=== PATIENT | female | born 1940 | race Caucasian/White ===

== ENCOUNTER 2016-12-02 13:03 | Emergency (ER) | payer OTHER ==
[~2016-12-02] VITALS: Ht 152.4 cm; Wt 85.3 kg
[~2016-12-02 13:03] MED LIST: ALPHAGAN-P 0.2%5 ML INTRAOC; ASPI-COR81 M1; ASPIRIN FOR CHI81 MG PO; CALCIUM 500500 M2 PO; CLINDAMYCIN300 MG PO; DARVOCET N 1001 TAB PO; DAYPRO600 M1 PO; DO NOT PROFILE T1 EA; LISINOPRIL20 MG PO; NORFLEX100 MG PO; PREDNISOLO15 MG/5 M1 PO; SKELAXIN800 MG PO; TIMOPTIC 0.5% 55 ML OS; VICO10300 PO; XALATAN 0.005%2.5 ML INTRAOC; [UNRECOGNIZED DRUG - OTHER] PO
[2016-12-02 14:29] LABS: BASO % 0.3 % (0.0-1.0); EOS # 0.1 10*3/uL (0.0-0.4); EOS % 1.4 % (1.0-4.0); HEMATOCRIT 39.3 % (37.0-47.0); HEMOGLOBIN 13.3 g/dl (12.0-16.0); LYMPH # 0.8 10*3/uL (1.3-4.4); LYMPH % 9.5 % (27.0-41.0); MEAN CELL VOLUME 84.5 fl (81.0-99.0); MEAN CORPUSCULAR HGB 28.6 pg (27.0-31.0); MEAN CORPUSCULAR HGB CONC 33.8 g/dl (33.0-37.0); MEAN PLATELET VOLUME 9.9 fl (9.6-12.3); MONO # 0.5 10*3/uL (0.1-1.0); MONO % 6.3 % (3.0-9.0); NEUT # 6.5 10*3/uL (2.3-7.9); NEUT % 82.1 % (47.0-73.0); PLATELET COUNT AUTOMATED 183 10*3/uL (130-400); RED BLOOD COUNT 4.65 10*6/uL (4.10-5.10); RED CELL DISTRI WIDTH 13.6 % (0-14.5); WHITE BLOOD COUNT 7.9 10*3/uL (4.8-10.8)
[2016-12-02 14:38] LABS: ACT PARTIAL THROMBO TIME 22.7 SECONDS (20.8-31.5); INTERNATIONAL NORM RATIO 0.9 (2.0-3.5)
[2016-12-02 14:49] LABS: ALBUMIN 3.8 gm/dl (3.1-4.5); ALKALINE PHOSPHATASE 129 U/L (45-117); BUN 17 mg/dl (7-24); CHLORIDE 99 mmol/L (98-107); CREATININE 0.81 mg/dL (0.55-1.02); LIPASE 129 U/L (73-393); MAGNESIUM 2.2 mg/dL (1.5-2.1); POTASSIUM 4.2 mmol/L (3.5-5.1); SGOT/AST 11 IU/L (3-35); SGPT/ALT 17 U/L (12-78); SODIUM 138 mmol/L (136-145); TOTAL PROTEIN 7.3 gm/dL (6.4-8.2)
[2016-12-02 14:51] LABS: TROPONIN I < 0.015 ng/ml (<0.045)
[2016-12-02 16:39] LABS: BILIRUBIN NEGATIVE (NEGATIVE); BLOOD 2+ (NEGATIVE); CLARITY SL CLOUDY (CLEAR); COLOR YELLOW (YELLOW); GLUCOSE NEGATIVE (NEGATIVE); KETONE NEGATIVE (NEGATIVE); LEUKO ESTERASE TRACE (NEGATIVE); NITRITE NEGATIVE (NEGATIVE); PH 5.5 (5.0-9.0); SPECIFIC GRAVITY >= 1.030 (1.005-1.030); UROBILINOGEN 0.2 E.U./dl (0.2-1.0)
[2016-12-02 16:51] LABS: BACTERIA 1+; WBC 0-2 wbc/hpf (0-5)
[2016-12-02] MEDS ORDERED: LEVAQUIN750 M1 PO (18:32)
== END 2016-12-02 19:59 | disposition home or self-care (01) ==
LOC: ED 13:03
PROVIDERS: Physician Assistant
DX: J18.1 Lobar pneumonia, unspecified organism (principal); N30.01 Acute cystitis with hematuria; I10 Essential (primary) hypertension; Z88.0 Allergy status to penicillin; Z79.899 Other long term (current) drug therapy

== ENCOUNTER → 2017-07-12 | Outpatient (CLI) | payer OTHER ==
[~2017-07-12] MED LIST changes: +LEVAQUIN750 M1 PO
== END | disposition home or self-care (01) ==
LOC: RAD 12:34
DX: M19.031 Primary osteoarthritis, right wrist (principal); S69.91XD Unspecified injury of right wrist, hand and finger(s), subsequent encounter; X58.XXXD Exposure to other specified factors, subsequent encounter; Z91.81 History of falling

== ENCOUNTER 2017-11-15 16:44 | Emergency (ER) | payer OTHER ==
[~2017-11-15] VITALS: Ht 157.4 cm; Wt 87.5 kg
[2017-11-15 17:09] LABS: BILIRUBIN NEGATIVE (NEGATIVE); BLOOD 3+ (NEGATIVE); CLARITY CLEAR (CLEAR); COLOR ORANGE (YELLOW); GLUCOSE TRACE (NEGATIVE); KETONE NEGATIVE (NEGATIVE); LEUKO ESTERASE 2+ (NEGATIVE); NITRITE POSITIVE (NEGATIVE); PH 5.5 (5.0-9.0); SPECIFIC GRAVITY 1.025 (1.005-1.030)
[2017-11-15 17:24] LABS: BACTERIA 2+; RBC 31-40 rbc/hpf (0-2); WBC 21-30 wbc/hpf (0-5)
[2017-11-15 17:25] LABS: BASO % 0.3 % (0.0-1.0); EOS # 0.2 10*3/uL (0.0-0.4); EOS % 1.8 % (1.0-4.0); HEMATOCRIT 38.9 % (37.0-47.0); HEMOGLOBIN 12.6 g/dl (12.0-16.0); LYMPH % 11.5 % (27.0-41.0); MEAN CELL VOLUME 87.6 fl (81.0-99.0); MEAN CORPUSCULAR HGB 28.4 pg (27.0-31.0); MEAN CORPUSCULAR HGB CONC 32.4 g/dl (33.0-37.0); MEAN PLATELET VOLUME 9.9 fl (9.6-12.3); MONO # 0.6 10*3/uL (0.1-1.0); MONO % 7.2 % (3.0-9.0); NEUT # 6.9 10*3/uL (2.3-7.9); NEUT % 78.9 % (47.0-73.0); PLATELET COUNT AUTOMATED 194 10*3/uL (130-400); RED BLOOD COUNT 4.44 10*6/uL (4.10-5.10); RED CELL DISTRI WIDTH 13.3 % (0-14.5); WHITE BLOOD COUNT 8.7 10*3/uL (4.8-10.8)
[2017-11-15 17:40] LABS: ALBUMIN 3.8 gm/dl (3.1-4.5); ALKALINE PHOSPHATASE 118 U/L (45-117); BUN 15 mg/dl (7-24); CHLORIDE 107 mmol/L (98-107); CREATININE 0.69 mg/dL (0.55-1.02); POTASSIUM 4.2 mmol/L (3.5-5.1); SGOT/AST 12 IU/L (3-35); SGPT/ALT 19 U/L (12-78); SODIUM 141 mmol/L (136-145); TOTAL PROTEIN 6.9 gm/dL (6.4-8.2)
[2017-11-15] MEDS ORDERED: CEFUROXIME AXE500 MG PO (18:40)
[2017-11-15] MEDS ORDERED: PYRIDIUM200 M1 PO (18:40)
== END 2017-11-15 18:40 | disposition home or self-care (01) ==
LOC: ED 16:44
PROVIDERS: Nurse Practitioner Family
DX: N39.0 Urinary tract infection, site not specified (principal); Z90.710 Acquired absence of both cervix and uterus; Z79.899 Other long term (current) drug therapy; Z88.0 Allergy status to penicillin

== ENCOUNTER 2021-09-05 12:23 | Emergency (ER) | payer OTHER ==
[~2021-09-05] VITALS: Ht 157.4 cm; Wt 86.2 kg
[~2021-09-05 12:23] MED LIST changes: +CEFUROXIME AXE500 MG PO; +PYRIDIUM200 M1 PO
[2021-09-05] MEDS ORDERED: COREG3.125 MG PO (12:29)
[2021-09-05] MEDS ORDERED: MELOXICAM15 MG PO (12:30)
[2021-09-05] MEDS ORDERED: TUMERSAID TABL1 EACH PO (12:30)
[2021-09-05 13:10] LABS: BASO % 0.3 % (0.0-1.0); EOS % 0.3 % (1.0-4.0); LYMPH % 7.8 % (27.0-41.0); MEAN CORPUSCULAR HGB 27.5 pg (27.0-31.0); MEAN CORPUSCULAR HGB CONC 32.4 g/dl (33.0-37.0); MONO # 1.1 10*3/uL (0.1-1.0); MONO % 8.5 % (3.0-9.0); NEUT # 10.4 10*3/uL (2.3-7.9); NEUT % 82.1 % (47.0-73.0); PLATELET COUNT AUTOMATED 244 10*3/uL (130-400); RED BLOOD COUNT 4.47 10*6/uL (4.10-5.10); RED CELL DISTRI WIDTH 13.4 % (0-14.5); WHITE BLOOD COUNT 12.6 10*3/uL (4.8-10.8)
[2021-09-05 13:26] LABS: ALKALINE PHOSPHATASE 83 U/L (45-117); BUN 10 mg/dl (7-24); CHLORIDE 103 mmol/L (98-107); CREATININE 0.69 mg/dL (0.55-1.02); POTASSIUM 3.1 mmol/L (3.5-5.1); SGOT/AST 10 IU/L (3-35); SGPT/ALT 13 U/L (12-78); SODIUM 138 mmol/L (136-145); TOTAL PROTEIN 6.4 gm/dL (6.4-8.2)
[2021-09-05 16:33] LABS: BILIRUBIN Negative (Negative); BLOOD 2+ (Negative); CLARITY Cloudy (Clear); COLOR Yellow (Yellow); GLUCOSE Negative (Negative); KETONE Negative (Negative); LEUKO ESTERASE 2+ (Negative); NITRITE Positive (Negative); PH 5.5 (4.5-8.0); SPECIFIC GRAVITY 1.015 (1.001-1.030)
[2021-09-05 16:44] LABS: BACTERIA 3+; WBC TNTC wbc/hpf (0-5)
[2021-09-05] MEDS ORDERED: ONDANSETRON4 MG SL (17:09)
[2021-09-05] MEDS ORDERED: LEVOFLOXACIN500 MG PO (17:09)
== END 2021-09-05 18:45 | disposition home or self-care (01) ==
LOC: ED 12:23
PROVIDERS: Emergency Medicine
DX: N39.0 Urinary tract infection, site not specified (principal); Z20.822 Contact with and (suspected) exposure to COVID-19; Z88.0 Allergy status to penicillin; Z79.899 Other long term (current) drug therapy

== ENCOUNTER → 2024-04-10 | Outpatient (CLI) | payer MEDICARE ==
[~2024-04-10] MED LIST changes: +COREG3.125 MG PO; +IOHEXOL 350 MG/ML 100 ML VIAL IV ONE; +LEVOFLOXACIN500 MG PO; +MELOXICAM15 MG PO; +ONDANSETRON4 MG SL; +TUMERSAID TABL1 EACH PO
[2024-04-10 11:30] LABS: BASO % 0.5 % (0.0-1.0); EOS # 0.2 10*3/uL (0.0-0.4); EOS % 2.7 % (1.0-4.0); HEMATOCRIT 40.3 % (37.0-47.0); MEAN CELL VOLUME 88.4 fl (81.0-99.0); MEAN CORPUSCULAR HGB 27.9 pg (27.0-31.0); MEAN CORPUSCULAR HGB CONC 31.5 g/dl (33.0-37.0); MEAN PLATELET VOLUME 10.2 fl (9.6-12.3); MONO # 0.5 10*3/uL (0.1-1.0); MONO % 9.7 % (3.0-9.0); NEUT # 3.7 10*3/uL (2.3-7.9); NEUT % 66.2 % (47.0-73.0); PLATELET COUNT AUTOMATED 191 10*3/uL (130-400); RED BLOOD COUNT 4.56 10*6/uL (4.10-5.10); RED CELL DISTRI WIDTH 13.6 % (0-14.5); WHITE BLOOD COUNT 5.6 10*3/uL (4.8-10.8)
[2024-04-10 11:48] LABS: BILIRUBIN Negative (Negative); BLOOD 2+ (Negative); CLARITY Cloudy (Clear); COLOR Yellow (Yellow); GLUCOSE Negative (Negative); KETONE Negative (Negative); LEUKO ESTERASE 2+ (Negative); NITRITE Positive (Negative); PH 5.5 (4.5-8.0); SPECIFIC GRAVITY >= 1.030 (1.001-1.030); UROBILINOGEN 0.2 E.U./dl (0.0-1.0)
[2024-04-10 11:53] LABS: ALKALINE PHOSPHATASE 71 U/L (46-116); BUN 19 mg/dl (9-23); CHLORIDE 102 mmol/L (98-107); POTASSIUM 4.4 mmol/L (3.4-5.1); SGPT/ALT 8 U/L (5-49); TOTAL PROTEIN 6.4 gm/dL (6.0-8.0)
[2024-04-10 13:25] LABS: BACTERIA 3+; EPITHELIAL CELLS 16-20; RBC 16-20 rbc/hpf (0-2); WBC TNTC wbc/hpf (0-5)
== END | disposition home or self-care (01) ==
LOC: LAB 09:40 → CT 09:40
PROVIDERS: ATTEND Urology
DX: N39.0 Urinary tract infection, site not specified (principal); R31.9 Hematuria, unspecified; K59.00 Constipation, unspecified; R16.1 Splenomegaly, not elsewhere classified; Z90.49 Acquired absence of other specified parts of digestive tract

== ENCOUNTER → 2024-09-05 | Outpatient (CLI) | payer MEDICARE ==
[~2024-09-05] MED LIST changes: +CELECOXIB200 MG PO; -IOHEXOL 350 MG/ML 100 ML VIAL IV ONE; +LOSARTAN POTASS25 M1 PO; +MYRBETRIQ25 M1 PO; +ROCKLATAN 0.022.5 ML OP; +Regadenoson 0.4 MG/5 ML SYR IV ONE; +TIZANIDINE HCL4 M1 PO; +Technetium Tc 99M Tetrofosmi 0.23 MG KIT IJ SCH
== END | disposition home or self-care (01) ==
LOC: CARD 01:45
PROVIDERS: ATTEND Family Medicine
DX: I05.9 Rheumatic mitral valve disease, unspecified (principal); R06.09 Other forms of dyspnea; R06.02 Shortness of breath

== ENCOUNTER 2025-01-11 09:19 | Emergency (ER) | payer OTHER, MEDICARE ==
[~2025-01-11 09:19] MED LIST changes: -Regadenoson 0.4 MG/5 ML SYR IV ONE; -Technetium Tc 99M Tetrofosmi 0.23 MG KIT IJ SCH
[2025-01-11] MEDS ORDERED: Dexamethasone Sodium Phospha 20 MG/5 ML VIAL IV ONE (09:30)
[2025-01-11] MEDS ORDERED: Albuterol Sulf/Ipratropium 3 ML VIAL NEB ONE (09:30)
[2025-01-11 09:44] LABS: BASO # 0.0 10*3/uL (0.0-0.1); BASO % 0.3 % (0.0-1.0); EOS # 0.3 10*3/uL (0.0-0.4); EOS % 4.2 % (1.0-4.0); MEAN CELL VOLUME 87.1 fl (81.0-99.0); MEAN CORPUSCULAR HGB 28.1 pg (27.0-31.0); MEAN PLATELET VOLUME 9.9 fl (9.6-12.3); MONO # 0.5 10*3/uL (0.1-1.0); MONO % 7.5 % (3.0-9.0); NEUT # 4.3 10*3/uL (2.3-7.9); NEUT % 65.7 % (47.0-73.0); NUCLEATED RED BLOOD CELL 0.0 % (0.0-0.0); NUCLEATED RED BLOOD CELL 0.0 10*3/uL (0.0-0.0); PLATELET COUNT AUTOMATED 180 10*3/uL (130-400); RED CELL DISTRI WIDTH 13.1 % (0-14.5)
[2025-01-11 10:03] LABS: BUN 14 mg/dl (9-23)
[2025-01-11] MEDS ORDERED: ACETAMINOPHEN 325 MG TAB PO ONE (10:55)
== END 2025-01-11 11:41 | disposition home or self-care (01) ==
LOC: ED 09:19
PROVIDERS: Emergency Medicine
DX: S16.1XXA Strain of muscle, fascia and tendon at neck level, initial encounter (principal); S09.90XA Unspecified injury of head, initial encounter; J20.9 Acute bronchitis, unspecified; Z88.0 Allergy status to penicillin; Z79.899 Other long term (current) drug therapy; Z90.710 Acquired absence of both cervix and uterus; V89.2XXA Person injured in unspecified motor-vehicle accident, traffic, initial encounter; Y93.I9 Activity, other involving external motion; Y92.488 Other paved roadways as the place of occurrence of the external cause; Y99.8 Other external cause status